=== PATIENT | male | born 1980 | race Caucasian/White ===

== ENCOUNTER 2019-09-30 10:33 | Emergency (ER) | payer OTHER ==
[~2019-09-30] VITALS: Ht 185.4 cm; Wt 131.5 kg
[~2019-09-30 10:33] MED LIST: LISINOPRIL20 MG PO; MEVACOR10 MG PO; NAPROSYN500 MG PO; VALTREX1000 MG PO
[2019-09-30 12:03] LABS: URINE BLOOD TRACE (Negative); URINE CLARITY CLEAR; URINE COLOR YELLOW; URINE GLUCOSE-RANDOM* 3+ (Negative); URINE KETONES 3+ (Negative); URINE LEUKOCYTES-REFLEX NEGATIVE (Negative); URINE NITRITE-REFLEX NEGATIVE (Negative); URINE PROTEIN (DIPSTICK) 1+ (Negative); URINE SPECIFIC GRAVITY 1.025 (1.005-1.035); URINE UROBILINOGEN 0.2 E.U./dl (0.2-1.0)
[2019-09-30 12:07] LABS: ICTOTEST (BILI CONFIRMATORY) Negative (Negative); URINE BILIRUBIN NEGATIVE (Negative)
[2019-09-30 12:11] LABS: TROPONIN-I <0.06 ng/mL (<0.06)
[2019-09-30 12:39] LABS: CASTS None Seen /LPF (None Seen); SQUAMOUS 0-3 Few /LPF (0-3); URINE WBC-REFLEX 0-5 Rare /HPF (0-5)
[2019-09-30 12:40] LABS: BACTERIA-REFLEX None Seen /HPF (None Seen); CRYSTALS None Seen /LPF (None Seen); URINE RBC 0-2 Rare /HPF (0-2)
[2019-09-30 13:54] LABS: CHLORIDE 87 mmol/L (98-107); POTASSIUM 4.1 mmol/L (3.5-5.1); SODIUM 122 mmol/L (136-145)
[2019-09-30 13:55] LABS: ANION GAP 16 mmol/L (7-16); CO2 19 mmol/L (21-32)
[2019-09-30 13:59] LABS: BUN 11 mg/dL (7-18); CREATININE 0.7 mg/dL (0.7-1.3); GLUCOSE 377 mg/dL (74-106)
[2019-09-30 14:00] LABS: ALBUMIN 4.3 g/dL (3.4-5.0); CALCIUM 9.4 mg/dL (8.5-10.1); SGOT 41 U/L (15-37); SGPT 74 U/L (30-65); TOTAL BILIRUBIN 0.8 mg/dL (0.2-1.0); TOTAL PROTEIN 7.2 g/dL (6.4-8.2)
[2019-09-30 14:01] LABS: LIPASE 538 U/L (73-393)
[2019-09-30 14:19] LABS: HEMATOCRIT 50.2 % (42.0-52.0); HEMOGLOBIN 17.4 gm/dL (14.0-18.0); MCH 27.8 pg (26.0-34.0); MCHC 34.7 g/dL (28.0-37.0); MCV 80.3 fL (80.0-100.0); PLATELET COUNT 319 thou/uL (150-400); RBC 6.25 mil/uL (4.50-6.00); RDW 14.7 % (10.5-14.5); WBC 11.7 thou/uL (4.0-11.0)
[2019-09-30] MEDS ORDERED: TRAMADOL 50 MG50 MG PO ×2 (15:15→15:21)
[2019-09-30] MEDS ORDERED: PRILOSEC OTC20 MG PO (15:15)
[2019-09-30] MEDS ORDERED: ONDANSETRON ODT8 MG PO (15:15)
[2019-09-30 15:39] VITALS: BP 163/89
[2019-09-30 15:59] LABS: ABSOLUTE NEUTROPHILS 9.1 thou/uL (1.4-8.2)
[2019-09-30 16:00] LABS: ANISOCYTOSIS 1+
--- NOTE | 2019-10-03 08:00 | EKG ---
[facility] [place] [address] [place] [address] ELECTROCARDIOGRAM REPORT Name: RUFINA CORCORAN Room #: [facility]#: [id number] Admission: 09/30/19 Attend Phys: Discharge: 09/30/19 Date of : 80 Report #: [id number] THIS REPORT FOR: cc: Nitish Islas MD, Christopher B. 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 [place] [facility]: [facility] : 1980 Requested By: Bertram Rodriguez Order Number: [id number] MD: Campos Huerta Measurements Intervals [place] Rate: 108 P: 43 MO: 155 QRS: 23 QRSD: 93 T: 10 QT: 325 QTc: 436 Interpretive Statements Sinus tachycardia Otherwise no significant abnormality Compared to ECG 07/08/2003 02:10:56 Sinus bradycardia no longer present Electronically Signed On 10-03-2019 7:59:52 CDT by Campos Huerta [email or web address] <ELECTRONICALLY SIGNED> By: Campos Huerta MD, [facility] 10/03/19 0759 1152 1152 Campos Huerta MD, [facility] /EPI
== END 2019-09-30 15:39 | disposition home or self-care (01) ==
LOC: ER 10:33
PROVIDERS: Emergency Medicine
DX: K86.89 Other specified diseases of pancreas (principal); E86.0 Dehydration; R10.84 Generalized abdominal pain; K21.9 Gastro-esophageal reflux disease without esophagitis; E87.1 Hypo-osmolality and hyponatremia; I10 Essential (primary) hypertension; R73.9 Hyperglycemia, unspecified; Z88.0 Allergy status to penicillin; Z79.899 Other long term (current) drug therapy

== ENCOUNTER 2019-10-03 14:38 | Inpatient (IN) | payer OTHER ==
[~2019-10-03] VITALS: Ht 185.4 cm; Wt 145.8 kg
[~2019-10-03 14:38] MED LIST changes: +ONDANSETRON ODT8 MG PO; +PRILOSEC OTC20 MG PO; +TRAMADOL 50 MG50 MG PO
[2019-10-03 15:14] VITALS: BP 158/105
[2019-10-03 17:00] LABS: HEMATOCRIT 47.5 % (42.0-52.0); HEMOGLOBIN 16.4 gm/dL (14.0-18.0); MCH 27.9 pg (26.0-34.0); MCHC 34.5 g/dL (28.0-37.0); MCV 80.9 fL (80.0-100.0); PLATELET COUNT 344 thou/uL (150-400); RBC 5.87 mil/uL (4.50-6.00); RDW 14.6 % (10.5-14.5); WBC 9.3 thou/uL (4.0-11.0)
[2019-10-03 17:01] LABS: URINE BLOOD TRACE (Negative); URINE CLARITY CLEAR; URINE COLOR YELLOW; URINE GLUCOSE-RANDOM* 2+ (Negative); URINE KETONES 3+ (Negative); URINE LEUKOCYTES-REFLEX NEGATIVE (Negative); URINE NITRITE-REFLEX NEGATIVE (Negative); URINE PROTEIN (DIPSTICK) 2+ (Negative); URINE SPECIFIC GRAVITY >= 1.030 (1.005-1.035); URINE UROBILINOGEN 0.2 E.U./dl (0.2-1.0)
[2019-10-03 17:03] LABS: ICTOTEST (BILI CONFIRMATORY) Negative (Negative); URINE BILIRUBIN NEGATIVE (Negative)
[2019-10-03 17:04] LABS: CALCIUM 9.9 mg/dL (8.5-10.1); CREATININE 0.8 mg/dL (0.7-1.3); POTASSIUM 3.6 mmol/L (3.5-5.1)
[2019-10-03 17:10] LABS: ALBUMIN 3.5 g/dL (3.4-5.0); DIRECT BILIRUBIN 0.1 mg/dL (<0.1-0.2); TOTAL BILIRUBIN 0.6 mg/dL (0.2-1.0); TOTAL PROTEIN 8.9 g/dL (6.4-8.2)
[2019-10-03 17:46] LABS: BACTERIA-REFLEX 1-9 Few /HPF (None Seen); CASTS None Seen /LPF (None Seen); CRYSTALS None Seen /LPF (None Seen); SQUAMOUS 0-3 Few /LPF (0-3); URINE RBC None Seen /HPF (0-2); URINE WBC-REFLEX None Seen /HPF (0-5)
[2019-10-03 17:51] LABS: ABSOLUTE NEUTROPHILS 5.8 thou/uL (1.4-8.2); PLATELET ESTIMATE NORMAL
[2019-10-03 18:51] VITALS: BP 158/105
--- NOTE | 2019-10-03 20:54 | NUR ---
HANDOFF PRINTED TO FLOOR
[2019-10-03 22:15] VITALS: BP 147/84
[2019-10-03 22:29] VITALS: BP 161/99
[2019-10-03 23:01] VITALS: BP 149/85
[2019-10-04 04:35] VITALS: BP 144/96
--- NOTE | 2019-10-04 04:55 | NUR ---
Pt admitted from ED at 2230 w/abd pain,pancreatitis. A/OX4,VSS. Pt is up ad ileana,encouraged to call for help as needed. Denies pain on assessment, N/V but c/o tenderness to abd on palpation. IVF infusing via LAC w/o any problems noted. Pt ahs been NPO since midnight. Resting quietly at this time,will continue to monitor pt.
[2019-10-04 05:59] LABS: HEMATOCRIT 41.4 % (42.0-52.0); MCH 27.9 pg (26.0-34.0); MCHC 34.4 g/dL (28.0-37.0); MCV 81.3 fL (80.0-100.0); PLATELET COUNT 294 thou/uL (150-400); RDW 14.4 % (10.5-14.5); WBC 7.1 thou/uL (4.0-11.0)
[2019-10-04 06:21] LABS: HEMOGLOBIN 14.2 gm/dL (14.0-18.0)
[2019-10-04 06:28] LABS: ALBUMIN 2.9 g/dL (3.4-5.0); CALCIUM 9.2 mg/dL (8.5-10.1); CREATININE 0.7 mg/dL (0.7-1.3); MAGNESIUM 1.8 mg/dL (1.8-2.4); POTASSIUM 3.3 mmol/L (3.5-5.1); TOTAL BILIRUBIN 0.5 mg/dL (0.2-1.0); TOTAL PROTEIN 7.3 g/dL (6.4-8.2)
[2019-10-04 07:33] VITALS: BP 135/85
[2019-10-04 11:01] LABS: METAMYELOCYTES 3 %; MYELOCYTES 1 %
[2019-10-04 11:02] LABS: ABSOLUTE NEUTROPHILS 4.6 thou/uL (1.4-8.2); ANISOCYTOSIS SLIGHT
--- NOTE | 2019-10-04 12:05 | NUR ---
Received awake on bed. Due medications given as prescribed. A+Ox4. On MS, not on telemetry. On room air, uses CPAP at night. On nothing per orem- pt informed and aware; mouth swabs offered and given to patient. On blood sugar monitoring; taken and recorded accordingly; with sliding scale insulin ordered. Continent of bowel and bladder, able to go to the toilet independently. With NS at 75cc/hr, infusing well at L AC. With consult to Gastro and Supply Crib Attendant- called in this morning. Independent with ADLs. Visited by today. Complained of pain, due PRN pain meds given as prescribed. With orders for covid swab- done and sent to lab. To continue monitoring patient.
--- NOTE | 2019-10-04 14:01 | NUR ---
PT ADMITTED RELATED TO ABD PAIN/PANCREATITIS. CM REVIEWED CHART AND SPOKE WITH CARE TEAM. CM CALLED AND SPOKE WITH PT AT BEDSIDE THIS DAY. PT APPEARED TO BE A&O X4. CM ROLE INTRODUCED. PT INDICATED HE LIVES IN A HOUSE WITH HER SPOUSE WITH 2 STEPS TO ENTER AND STEPS TO BASEMENT. 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 PT INDICATED NO DME OR HH HX. PT'S PCP IS DR. DAVID REED. PT INDICATED HE HAS INSURANCE THROUGH HIS EMPLOYER AND THAT HE HAS A COPY OF THE CARD. HE INDICATED THAT THERE HAD BEEN SOME ISSUE WITH IT BUT THAT IT SHOULD NOW BE ACTIVE AGAIN. CM TO PROVIDE COPY TO ADMITTING. PT INDICATED HE PLANS TO RETURN HOME ONCE MEDICALLY STABLE. CM TO FOLLOW INDICATED WITH DC PLANNING.
[2019-10-04 14:45] VITALS: BP 150/97
[2019-10-04 19:32] VITALS: BP 180/88
[2019-10-04 21:10] VITALS: BP 146/77
--- NOTE | 2019-10-05 05:05 | NUR ---
Assumed pt care at 1900. A/OX4,BP elevated at beginning of shift but on recheck WNL and meds given. Up ad ileana w/o problems. Medicated for pain with Toradol with relief reported. Pt has been NPO since midninght,IVF infusing via LAC w/o problems. Pt encouraged to call for help as needed and doing so. 24hr urine collection in progress. Resting quietly w/o any distress noted,will continue to monitor pt.
[2019-10-05 07:05] VITALS: BP 154/73
[2019-10-05 07:09] LABS: GLYCOHEMOGLOBIN (HGB A1C) 11.2 % (4.8-5.6)
--- NOTE | 2019-10-05 10:06 | NUR ---
Received awake on bed. Due medications given as prescribed, able to swallow meds w/o difficulty. On room air. Vital signs stable. On nothing per orem- pt informed and aware. On MS, not on telemetry; no complaints of chest pain, crushing sensation and heaviness. On blood sugar monitoring, taken and recorded accordingly; with sliding scale insulin ordered- given as prescribed. Continent of bowel and bladder- ongoing 24 urine collection until 4:30pm today- pt instructed and aware. With NS at 75cc/hr, infusing well at L AC. Up ad ileana, independent with ADLs. For EGD today, consent to be signed- pt wanted to verify a few more things with physician- pre-op nurse informed; pt brought down to GI lab via wheelchair by GI transport staff; report given. Dr Booth informed during his rounds this AM that pt still ongoing EGD. To continue monitoring patient.
--- NOTE | 2019-10-05 10:38 | HC ---
[facility] [place] [address] CONSULTATION Name: RUFINA CORCORAN Room #: 450-P ADM IN M.R.#: [id number] Admission: 10/03/19 Attend Phys: Tutu Booth MD Discharge: Date of : 80 Report #: [id number] THIS REPORT FOR: cc: Nitish Islas MD,Jana Cedeño MD, MD ~ CC: Nitish Petty [facility] Tutu Booth DATE OF SERVICE: 10/04/2019 ENDOCRINE CONSULTATION CONSULTING PHYSICIAN: Dr. Booth. REASON FOR CONSULTATION: Type 2 diabetes mellitus. HISTORY OF PRESENT ILLNESS: This is a 39-year-old male patient whose medical background is only noted for hypertension, hyperlipidemia, and obesity. The patient presented yesterday with complaints of intractable abdominal pain that has progressed over a period of few days and has been associated with nausea and vomiting multiple times. The patient was admitted for further care and monitoring. During his preliminary workup, the patient was found to have consistently elevated blood glucose values over 200 mg/dL establishing a diagnosis of diabetes mellitus for the first time. When questioned further, the patient denied any knowledge of a prior documentation of glucose abnormality, has not experienced polyuria, excessive thirst or significant weight changes. He does; however, note degree of visual blurring over the past month. His family history is noted for his father and maternal grandfather both having had type 2 diabetes mellitus. The patient's background is only noted for hypertension that is treated with lisinopril 20 mg daily and hyperlipidemia that is treated with lovastatin 10 mg daily. REVIEW OF SYSTEMS: CONSTITUTIONAL: Negative for fatigue, tiredness, significant body weight changes, fever or chills. HEENT: Negative for sore throat, sinus pain, ear drainage. PULMONARY: Negative for shortness of breath, cough or hemoptysis. CARDIAC: Negative for chest pain, palpitations, syncope or presyncope. GASTROINTESTINAL: Noted for intractable abdominal pain, worsening, associated [facility] [address] [place] [address] CONSULTATION Name: RUFINA CORCORAN Room #: [facility] IN M.R.#: [id number] Admission: 10/03/19 Attend Phys: Tutu Booth MD Discharge: Date of : 80 Report #: [id number] with multiple episodes of nausea and vomiting. NEUROLOGY: Negative for loss of consciousness, headaches or seizure activity. DERMATOLOGIC: Negative for skin rash, ulceration or other major abnormalities. Otherwise, review of systems noncontributory unless mentioned in the HPI. PAST MEDICAL HISTORY: 1. Hypertension. 2. Hyperlipidemia. 3. Obesity. 4. History of gastroesophageal reflux disease. 5. Gastritis. OUTPATIENT MEDICATIONS: Include, 1. Lisinopril 20 mg daily. 2. Lovastatin 10 mg daily. ALLERGIES: PENICILLIN. FAMILY HISTORY: Father and maternal grandfather both have type 2 diabetes mellitus. SOCIAL HISTORY: He is , has 2 children, denies use of tobacco or illicit drugs. He drinks alcohol only occasionally. 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 PHYSICAL EXAMINATION: GENERAL: Pleasant male patient who is not in apparent pain or distress. VITAL SIGNS: Blood pressure is 135/85 mmHg, heart rate is 95 beats per minute, respirations 16 per minute, temperature 36.5 degrees Celsius. CONSTITUTIONAL: He is lying supine in bed, appears comfortable, not in apparent distress. HEENT: Anicteric sclerae. Intact extraocular motions. NECK: Supple, without JVD, carotid bruits or lymphadenopathy, no thyromegaly. CHEST: Clear to auscultation with scattered rales. No wheeze or crackles. HEART: Regular rate and rhythm without murmurs or gallops. ABDOMEN: Soft, lax with moderate discomfort on deep palpation. No guarding. Active bowel sounds. EXTREMITIES: Lower extremity exam noted for trace ankle edema. No skin breaks or ulcerations. NEUROLOGIC: Awake, alert and oriented to time, place and person. The remainder of his examination is nonfocal. PSYCHIATRIC: Pleasant, interactive. Normal thought process. Normal mood and affect. LABORATORY RESULTS: Blood glucose values since arrival have ranged between 249 and 288 mg/dL. Sodium 132, potassium 3.3, chloride 96, CO2 of 22, anion gap of [address] [address] CONSULTATION Name: RUFINA CORCORAN Room #: 450-P [facility] IN M.R.#: [id number] Admission: 10/03/19 Attend Phys: Tutu Booth MD Discharge: Date of : 80 Report #: [id number], BUN 12, creatinine 0.7, lipase 749, AST 55, total bilirubin 0.5, calcium 9.2, magnesium 1.8, alkaline phosphatase 75, ALT 68, total protein 7.3, albumin 2.9, EGFR 126. Troponin is negative. White blood count 7.1, hemoglobin 14.2, hematocrit 41.4, and platelets 294. ASSESSMENT AND PLAN: 1. Type 2 diabetes mellitus. The documentation of hyperglycemia so far is highly suggestive of a diagnosis of type 2 diabetes mellitus. The patient was counseled at length about the pathogenesis of type 2 diabetes mellitus and about the importance of achieving and maintaining adequate glycemic control both short term and long term care phlebotomist to avoid diabetic complications. I will seek to verify this diagnosis with hemoglobin A1c. The patient has been placed on a low intensity Humalog supplemental scale, which he maintains. He is currently undergoing an extensive workup for his abdominal issues and his CT scan has raised concerns of severe duodenitis as well as a potential mass involving his pancreas. The possibility of carcinoid, lymphoma, and even pancreatitis are being sorted out. That said, I will continue to stay clear of metformin, which eventually would be a suitable selection. Also, I would steer clear of DPP-4 inhibitors and GLP-1 analogues until the presence or absence of pancreatitis is ascertained. That said, I believe that the patient's best short-term option would be that of Lantus insulin, which I will start at a dose of 14 units or 12 units daily in addition to his existing support with Humalog supplemental scale. Blood glucose monitoring will continue a.c. and at bedtime and further therapeutic adjustments will be made accordingly. Definitive therapeutic plans will be set in place once the patient's outlook is better clarified and his discharge planning is in place. 2. Hypertension. The patient's level of blood pressure control is adequate, continue with monitoring. He is not currently on active therapy. 3. Hyperlipidemia. The patient is known to have hyperlipidemia and is maintained on lovastatin. This is to be determined once his clinical stability is established. 4. Abdominal pain, intractable and associated with nausea and vomiting with concerning CT scan findings of mass potentially involving the pancreas. The patient was scheduled to undergo an upper endoscopy earlier today and I believe that further workup is being planned for him at the time of this dictation. I certainly appreciate this consultation by Dr. Booth. <ELECTRONICALLY SIGNED> By: Jana Castaneda MD 10/05/19 1038 1208 1229 Jana Castaneda MD /nt
[2019-10-05 13:10] VITALS: BP 146/85
[2019-10-05 15:00] LABS: ALBUMIN 3.2 g/dL (3.4-5.0); DIRECT BILIRUBIN < 0.1 mg/dL (<0.1-0.2); SGOT 75 U/L (15-37); SGPT 92 U/L (30-65); TOTAL BILIRUBIN 0.4 mg/dL (0.2-1.0); TOTAL PROTEIN 7.7 g/dL (6.4-8.2)
[2019-10-05 19:35] VITALS: BP 150/79
--- NOTE | 2019-10-06 00:29 | NUR ---
PATIENT ASSESSED AND IS ALERT X 4. SKIN WARM AND DRY. RESP EVEN AND UNLABORED. UP AD LAURIE IN ROOM TO BATHROOM. IV PATENT AT 75 CC/HR. SITE HEALTHY. NO NAUSEA, VOMITING NOTED. PAIN IN ABDOMEN, PAIN MED GIVEN WITH SOME RELIEF. ON ROOM AIR. NO WOUNDS PRESENT. TAKING SOFT DIET WELL. WILL POSSIBLY BE DC IN AM. ACCUCHECK WAS 178 THIS EVENING. LUNGS CTA. NO EDEAMA NOTED. IV IN LEFT AC. IS NEWLY DIABETIC. NO NEW QUESTIONS ASKED. CONT PLAN OF CARE.
[2019-10-06 07:13] VITALS: BP 143/92
[2019-10-06 10:11] LABS: HEMATOCRIT 41.2 % (42.0-52.0); HEMOGLOBIN 14.2 gm/dL (14.0-18.0); MCH 27.6 pg (26.0-34.0); MCHC 34.4 g/dL (28.0-37.0); MCV 80.3 fL (80.0-100.0); PLATELET COUNT 236 thou/uL (150-400); RBC 5.13 mil/uL (4.50-6.00); RDW 14.4 % (10.5-14.5); WBC 5.4 thou/uL (4.0-11.0)
[2019-10-06 10:29] LABS: ALBUMIN 2.9 g/dL (3.4-5.0); CALCIUM 9.1 mg/dL (8.5-10.1); CREATININE 0.8 mg/dL (0.7-1.3); MAGNESIUM 1.6 mg/dL (1.8-2.4); PHOSPHORUS 4.5 mg/dL (2.5-4.9); POTASSIUM 3.5 mmol/L (3.5-5.1); TOTAL BILIRUBIN 0.4 mg/dL (0.2-1.0); TOTAL PROTEIN 6.8 g/dL (6.4-8.2)
[2019-10-06 10:56] LABS: TSH 10.091 uIU/mL (0.358-3.740)
--- NOTE | 2019-10-06 11:52 | NUR ---
Assumed pt care at 7am.Pt in bed resting without c/o.Assessment completed.vss. Blood sugar post meal was 232, insulin given as ordered.Dr Rivera here,order noted.Pt might possible dc home later today.No verbal c/o.Will continue to monitor.
[2019-10-06 12:33] LABS: ABSOLUTE NEUTROPHILS 3.3 thou/uL (1.4-8.2); ANISOCYTOSIS SLIGHT; METAMYELOCYTES 2 %; MYELOCYTES 1 %
--- NOTE | 2019-10-06 14:50 | NUR ---
Nutrition Follow Up: Pt is s/p EGD on 10/04, back on a soft/fiber restricted diet and tolerating well. Ate 100% dinner last night. Anticipating possible discharge later today. Still having some abdominal pain. Pt is a new diabetic, A1c elevated at 11.2%. Fasting blood sugar still 173 mg/dl this morning. Currently on SSI and Lantus. Endo saw pt and for discharge is recommending to d/c insulin and start metformin and glipizide. RD met with pt and significant other in room to provide education/answer questions. Both pt's father and SO's father have diabetes, so they are familiar. Discussed carb containing foods, impact on BGs, and how to incorporate balance of food groups at meals. Pt was a sugary beverage drinker- now aware of alternative, better choices. Adding in more activity/walking also encouraged to aid in better BGs. Referred to OP Dietitian at local [facility] for ongoing resources, 1:1 counseling if needed. Change to low nutrition risk, anticipate eating to return to baseline.
--- NOTE | 2019-10-06 15:03 | P ---
[facility] [place] [address] PROCEDURE REPORT Name: RUFINA CORCORAN Room #: 450-P ADM IN M.R.#: [id number] Admission: 10/03/19 Attend Phys: Tutu Booth MD Discharge: Date of : 80 Report #: [id number] THIS REPORT FOR: cc: Nitish Islas MD, Christopher B. MD Mc[place]hinney, Christian C. MD ~ CC: Nitish Petyt [facility] Tutu Booth MD DATE OF SERVICE: 10/05/2019 PROCEDURE PERFORMED: Upper endoscopy with biopsies. HISTORY OF PRESENT ILLNESS: The patient is a 39-year-old male who was admitted with abdominal pain, was noted to have an elevated lipase consistent with pancreatitis of 749 yesterday. He underwent a CT scan of the abdomen and pelvis on 09/30/2019 when he was evaluated for abdominal pain at that time. Gallbladder and bile ducts were normal. There was marked inflammation adjacent to the third portion of the duodenum extending inferiorly. There is an oval mass in the anterior upper margin of the third portion of the duodenum. This appears to be inseparable from the duodenum. It may have extended to the head of the pancreas, the carcinoid cannot be ruled out. Correlation with pancreatic enzymes recommended to evaluate for possible pancreatitis. The patient does report a history of intermittent heartburn symptoms. No previous history of upper endoscopy. DESCRIPTION OF PROCEDURE: The risks and benefits of the procedure were explained to the patient, those risks including but not limited to bleeding, perforation and the risk of sedation. He understood these risks and gave informed consent. Sedation was given using propofol per anesthesia. Next, using a standard Olympus upper endoscope, the scope was placed in the patient's mouth and advanced under direct vision through the esophagus, stomach and into the third portion of the duodenum. The larynx was normal in appearance. The upper and mid esophagus was normal. In the distal esophagus, grade B erosive esophagitis was noted. A possible short segment of Khan's also noted. Biopsies were obtained. Overall in the stomach, a moderate gastritis was noted throughout. Biopsies were obtained to rule out H. pylori. No evidence of ulcerations or bleeding. The pylorus was normal and patent. The duodenal bulb, first, second and third portion were all normal. No evidence of duodenitis was noted. No mass lesions were seen. In the second portion of the duodenum, the major papilla was identified and normal in appearance. Bile was noted draining normally. At this point, the scope was then withdrawn and the procedure terminated. The patient tolerated the procedure well. [address] [address] PROCEDURE REPORT Name: RUFINA CORCORAN Room #: 450-P [facility] IN M.R.#: [id number] Admission: 10/03/19 Attend Phys: Tutu Booth MD Discharge: Date of : 80 Report #: [id number] IMPRESSION: 1. Grade B erosive esophagitis. 2. 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 3. Gastritis. 4. Normal appearing duodenum. RECOMMENDATIONS: 1. Await biopsy results. 2. Continue daily PPI therapy long-term. 3. We will await lipase value today and likely advance diet. I would recommend proceeding with an endoscopic ultrasound as an outpatient in the future for further evaluation of the pancreas and possible mass lesion that was described on CT scan. Thank you for allowing me to participate in his care. <ELECTRONICALLY SIGNED> By: Isai Orellana MD 10/06/19 1503 1145 1308 Isai Orellana MD /nt
[2019-10-06 15:08] VITALS: BP 158/91
--- NOTE | 2019-10-06 16:06 | PATH ---
[facility] [place] [address] PATHOLOGY RPT PROCEDURE Name: RAHEEL CAMPOS Room #: 450-P ADM IN M.R.#: [id number] Admission: 10/03/19 Date of : 80 Discharge: Report #: [id number] Path Case #: [id number] [facility] Accession Number: [id number] . 01 Material submitted: . PART A: stomach - BX OF GASTRITIS PART B: esophagus - BX OF DISTAL ESOPHAGUS. Modifiers: distal . 01 Clinical history: . Pancreatitis, abdominal pain, abdominal mass, food intolerance A. R/O H. pylori B. R/O Khan's . 02 Diagnosis: A. Gastric mucosa, gastritis rule out H. pylori, endoscopic biopsy: - Mild chronic gastritis with features of reactive gastropathy. - Negative for intestinal metaplasia or atrophy. - Negative for Helicobacter pylori (properly controlled immunohistochemical stain performed). . B. Gastroesophageal mucosa, distal esophagus to rule out Khan's, endoscopic biopsy: - Gastric-type mucosa with moderate chronic inflammation. - Squamous mucosa showing mild esophagitis. - Negative for dysplasia or malignancy. . 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 02 Electronically signed: . Geovanna Herrera MD, Pathologist NPI- [id number] . 01 Gross description: . A. The specimen is received in formalin, labeled "Raheel Campos, biopsy of gastritis, R/O H. pylori". Received are three segments of pale ellis soft tissue ranging in size from 0.3 to 0.7 cm in maximum dimensions. The specimen is submitted entirely in cassette A1. . B. The specimen is received in formalin, labeled "Raheel Campos, biopsy of distal esophagus, Khan's". Received are two segments of pale ellis soft tissue ranging in size from 0.3 to 0.8 cm in maximum dimensions. The specimen is submitted entirely in cassette B1. (CAA; 10/05/2019) QAC/QAC 10/05/2019 1839 Local . 02 Pathologist provided ICD-10: [address] [address] PATHOLOGY RPT PROCEDURE Name: RAHEEL CAMPOS Room #: 450-P [facility] IN M.R.#: [id number] Admission: 10/03/19 Date of : 80 Discharge: Report #: [id number] Path Case #: [id number] K29.50, K20.9 . 02 CPT . [id number], [id number], [id number] Specimen Comment: A courtesy copy of this report has been sent to [phone], [phone] Specimen Comment: [id number], Specimen Comment: Report sent to ,DR REED / DR MARTINEZ Performed at: 01 [facility] [address], [place] [id number] MD Tobi Harris MD Phone: [phone] Performed at: [address] [facility] [address] [id number] MD Geovanna Herrera MD Phone: [phone]
[2019-10-06] MEDS ORDERED: PROTONIX40 M1 PO (17:04)
[2019-10-06] MEDS ORDERED: MIRALAX17 GM PO (17:04)
[2019-10-06] MEDS ORDERED: LANTUS SUBQ (17:05)
[2019-10-06] MEDS ORDERED: HUMALOG100 UNIT/1 SUBQ (17:06)
[2019-10-06 17:29] VITALS: BP 158/91
[2019-10-06 18:31] LABS: COLLECTION DURATION 24 hours; TOTAL VOLUME 2600 mL
[2019-10-07] MEDS ORDERED: [UNRECOGNIZED DRUG - SUPPLY] TOP (12:14)
[2019-10-07] MEDS ORDERED: INSULIN SYRING1 EA13 SUBQ (12:14)
[2019-10-07] MEDS ORDERED: [UNRECOGNIZED DRUG - SUPPLY] SUBQ (12:18)
== END 2019-10-06 18:40 | disposition home or self-care (01) | DRG 380 ==
LOC: ER 14:38 → EROBS 18:46 → 4W 22:19
PROVIDERS: Emergency Medicine; Internal Medicine; Nurse Practitioner; ADMIT Internal Medicine; ATTEND Internal Medicine
PROC: 0DB38ZX Excision of Lower Esophagus, Via Natural or Artificial Opening Endoscopic, Diagnostic (ICD-10-PCS; principal; 2019-10-05)
PROC: 0DB68ZX Excision of Stomach, Via Natural or Artificial Opening Endoscopic, Diagnostic (ICD-10-PCS; 2019-10-05)
DX: K22.10 Ulcer of esophagus without bleeding (principal); K85.90 Acute pancreatitis without necrosis or infection, unspecified; K90.49 Malabsorption due to intolerance, not elsewhere classified; Z68.41 Body mass index [BMI] 40.0-44.9, adult; K29.70 Gastritis, unspecified, without bleeding; K21.9 Gastro-esophageal reflux disease without esophagitis; I10 Essential (primary) hypertension; E78.5 Hyperlipidemia, unspecified; R19.00 Intra-abdominal and pelvic swelling, mass and lump, unspecified site; R74.0 Nonspecific elevation of levels of transaminase and lactic acid dehydrogenase [LDH]; E66.9 Obesity, unspecified; E11.65 Type 2 diabetes mellitus with hyperglycemia; Z20.828 Contact with and (suspected) exposure to other viral communicable diseases; K76.0 Fatty (change of) liver, not elsewhere classified; Z88.0 Allergy status to penicillin; Z83.3 Family history of diabetes mellitus
CPT/HCPCS: 10040; 62110; 62900; 70005